=== PATIENT | female | born 1990 | race Caucasian/White ===

== ENCOUNTER 2020-02-08 17:34 | Emergency (ER) | payer OTHER ==
[~2020-02-08] VITALS: Ht 172.8 cm; Wt 64.5 kg
--- OUTSIDE RECORDS SUMMARY | 2020-02-08 17:41 | XMS REPORT | CCD ---
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 Name Role Phone PP Unavailable CCM Unavailable Summary Purpose Interface Exchange Insurance Providers Payer name Policy type / Coverage type Covered constitution party ID Effective Begin Date Effective End Date [employer] Comm ercial Insurance [id number] Unkn own Family history Mother Diagnosis Age At Onset Depression Unknown Social History Social History Element Codes Description Effective Dates Marital status Unknown M lee Em 06/10/[address]: [id number] Never smoker 03/03/2016 Alcohol history Unknown occasionally drinks alcohol 03/03/2016 Allergies, Adverse Reactions, Alerts Substance Reaction Codes Entered Date Inactivated Date Status * NO KNOWN DRUG CODY RGIES Unknown 03/03/2016 No Inactive Date Active Past Medical History Illness Codes Condition Status Onset Date Resolved Date Acute upper respirat ory infection, unspecified ICD-9: 465.9 ICD-10: J06.9 Active 06/10/2019 Unknown Other allergic rhinitis ICD-9: 477.8 ICD-10: J30.89 Active 06/10/2019 Unknown Encounter for gyneco logical examination (general) (routine) without abnormal findings ICD-9: V72.31 ICD-10: Z01.419 Active 07/11/2016 Unknown Encounter for genera l adult medical examination without abnormal findings ICD-9: V70.0 ICD-10: Z00.00 Active 03/02/2016 Unknown Problems Condition Codes Effectiv e Dates Condition Status Acute upper respirat ory infection, unspecified ICD-9: 465.9 ICD-10: J06.9 06/10/2019 Active Other allergic rhinitis ICD-9: 477.8 ICD-10: J30.89 06/10/2019 Active Encounter for gyneco logical examination (general) (routine) without abnormal findings ICD-9: V72.31 ICD-10: Z01.419 07/11/2016 Active Encounter for genera l adult medical examination without abnormal findings ICD-9: V70.0 ICD-10: Z00.00 03/02/2016 Active Medications Medication Codes Instruc tions Start Date Stop Date Fill Instructions Zyrtec-D 5 mg-120 mg tablet,extended release RxNorm: 9724243 1 Tablet(s) PO Q12 P RN 06/10/2019 No Stop Date Active NuvaRing 0.12 mg -0. 015 mg/24 hr vaginal RxNorm: 4227833 1 ring VAG monthly 10/18/2016 06/09/2019 In active wants 3 months RX NuvaRing 0.12 mg -0. 015 mg/24 hr vaginal RxNorm: [id number] 1 ring VAG monthly 07/12/2016 07/11/2016 In active NuvaRing 0.12 mg -0. 015 mg/24 hr vaginal RxNorm: [id number] 1 ring VAG monthly 07/12/2016 10/09/2016 In active wants 3 months RX NuvaRing 0.12 mg -0. 015 mg/24 hr vaginal RxNorm: [id number] 1 ring VAG monthly 03/03/2016 07/11/2016 In active NuvaRing 0.12 mg -0. 015 mg/24 hr vaginal RxNorm: [id number] 1 ring VAG monthly No Start Date 03/02/2016 Inactive Medication Administered No Medication Administered data Immunizations No Immunization data Assessments Condition Codes Effectiv e Dates Other allergic rhinitis ICD-10: J30. 89 ICD-9: 477.8 06/10/2019 Acute upper respiratory infection, unspecified ICD-10: J06.9 ICD-9: 465.9 06/10/2019 Encounter for gynecological examination (general) (routine) without abnormal findings ICD-10: Z01.419 ICD-9: V72.31 07/12/2016 Encounter for general adult medical exam ination without abnormal findings ICD-10: Z00.00 ICD-9: V70.0 03/03/2016 Reason For Visit Reason For Visit Effective Dates Notes sinus congestion 06/10/2019 well woman exam (18-39 years) 07/12/2016 well woman exam (18-39 years) 03/03/2016 Results Observation Observation Code Item Item Code Result Date GC/CHL PRB [id number] Chl t gabriele DNA Negative 07/13/2016 GC/CHL PRB [id number] GC [place] OBE Negative 07/13/2016 Review of Systems System Result Effective Dates Constitutional recent illness 06/10/2019 Constitutional No anorexia 06/10/2019 Constitutional No night sweats 06/10/2019 Constitutional No chills 06/10/2019 Constitutional No diaphoresis 06/10/2019 Constitutional No fatigue 06/10/2019 Constitutional No fever 06/10/2019 Constitutional No insomnia 06/10/2019 Constitutional No malaise 06/10/2019 Constitutional No weight loss 06/10/2019 Constitutional No weight gain 06/10/2019 Eyes No eye discharge Eyes No eye erythema Ears/Nose/Throat/Neck nasal allergies 06/10/2019 Ears/Nose/Throat/Neck nasal discharge 06/10/2019 Ears/Nose/Throat/Neck oral pain 06/10/2019 Ears/Nose/Throat/Neck sinus congestion 06/10/2019 Ears/Nose/Throat/Neck sore throat 06/10/2019 Cardiovascular No chest pain/pressure 06/10/2019 Respiratory cough 2018 Respiratory chest tightness 06/10/2019 Gastrointestinal No vomiting 06/10/2019 Gastrointestinal No nausea 06/10/2019 Dermatologic No rash Neurologic No alteration of consciousness 06/10/2019 Constitutional No recent illness 07/12/2016 Constitutional No anorexia 07/12/2016 Constitutional No night sweats 07/12/2016 Constitutional No chills 07/12/2016 Constitutional No diaphoresis 07/12/2016 Constitutional No fatigue 07/12/2016 Constitutional No fever 07/12/2016 Constitutional No insomnia 07/12/2016 Constitutional No malaise 07/12/2016 Constitutional No weight loss 07/12/2016 Constitutional No weight gain 07/12/2016 Constitutional No obesity 07/12/2016 Eyes No eye discharge Eyes No eye erythema Eyes No vision change Ears/Nose/Throat/Neck No headache 07/12/2016 Ears/Nose/Throat/Neck No nasal allergies 07/12/2016 Ears/Nose/Throat/Neck No nasal discharge 07/12/2016 Ears/Nose/Throat/Neck No otalgia 07/12/2016 Ears/Nose/Throat/Neck No otitis media 07/12/2016 Ears/Nose/Throat/Neck No postnasal drip 07/12/2016 Ears/Nose/Throat/Neck No sinus congestion 07/12/2016 Cardiovascular No chest pain/pressure 07/12/2016 Cardiovascular No dyspnea 07/12/2016 Cardiovascular No edema 07/12/2016 Cardiovascular No exercise intolerance 07/12/2016 Respiratory No chest congestion 07/12/2016 Respiratory No chest tightness 07/12/2016 Respiratory No cigarette smoking 07/12/2016 Respiratory No cough Respiratory No dyspnea on exertion 07/12/2016 Respiratory No dyspnea 1 Gastrointestinal No abdominal pain 07/12/2016 Gastrointestinal No constipation 07/12/2016 Gastrointestinal No diarrhea 07/12/2016 Genitourinary/Nephrology No dysuria 07/12/2016 Genitourinary/Nephrology No Pap smea r abnormality 07/12/2016 Genitourinary/Nephrology No urinary urgenc y 07/12/2016 Genitourinary/Nephrology No urinary frequency 07/12/2016 Genitourinary/Nephrology No urinary incontinence 07/12/2016 Genitourinary/Nephrology No urinary retention/hesitancy 07/12/2016 Musculoskeletal No joint complaint 07/12/2016 Musculoskeletal No muscle weakness 07/12/2016 Musculoskeletal No myalgias 07/12/2016 Dermatologic No rash Dermatologic No sores Psychiatric No anxiety 1 Psychiatric No depression 07/12/2016 Constitutional No recent illness 03/03/2016 Constitutional No anorexia 03/03/2016 Constitutional No night sweats 03/03/2016 Constitutional No chills 03/03/2016 Constitutional No diaphoresis 03/03/2016 Constitutional No fatigue 03/03/2016 Constitutional No fever 03/03/2016 Constitutional No insomnia 03/03/2016 Constitutional No malaise 03/03/2016 Constitutional No weight loss 03/03/2016 Constitutional No weight gain 03/03/2016 Constitutional No obesity 03/03/2016 Eyes No vision change Eyes No eye discharge Eyes No eye erythema 05/2016 Ears/Nose/Throat/Neck No nasal discharge 03/03/2016 Ears/Nose/Throat/Neck No nasal allergies 03/03/2016 Ears/Nose/Throat/Neck No headache 03/03/2016 Ears/Nose/Throat/Neck No sinus congestion 03/03/2016 Ears/Nose/Throat/Neck No postnasal drip 03/03/2016 Ears/Nose/Throat/Neck No otalgia 03/03/2016 Ears/Nose/Throat/Neck No otitis media 03/03/2016 Cardiovascular No chest pain/pressure 03/03/2016 Cardiovascular No dyspnea 03/03/2016 Cardiovascular No edema 03/03/2016 Cardiovascular No exercise intolerance 03/03/2016 Respiratory No cough 05/2016 Respiratory No chest congestion 03/03/2016 Respiratory No chest tightness 03/03/2016 Respiratory No cigarette smoking 03/03/2016 Respiratory No dyspnea 0 03/03/2016 Respiratory No dyspnea on exertion 03/03/2016 Gastrointestinal No abdominal pain 03/03/2016 Gastrointestinal No constipation 03/03/2016 Gastrointestinal No diarrhea 03/03/2016 Genitourinary/Nephrology No dysuria 03/03/2016 Genitourinary/Nephrology No urinary frequency 03/03/2016 Genitourinary/Nephrology No urinary urgenc y 03/03/2016 Genitourinary/Nephrology No Pap smea r abnormality 03/03/2016 Genitourinary/Nephrology No urinary incontinence 03/03/2016 Genitourinary/Nephrology No urinary retention/hesitancy 03/03/2016 Musculoskeletal No muscle weakness 03/03/2016 Musculoskeletal No myalgias 03/03/2016 Musculoskeletal No joint complaint 03/03/2016 Dermatologic No sores Dermatologic No rash 05/2016 Psychiatric No depression 03/03/2016 Psychiatric No anxiety 0 03/03/2016 Physical Exam Exam Name System Name It em Name Status Result Effective Dates Notes Full Exam - ENT Constitutional general appearance Overall: well nourished 06/10/2019 None Full Exam - ENT Constitutional general appearance Overall: well developed 06/10/2019 None Full Exam - ENT Constitutional general appearance Overall: in no acute distress 06/10/2019 None Full Exam - ENT Neurologic orientation Overall: oriented to person, place a nd time 06/10/2019 None Full Exam - ENT Integument inspection of skin Overall: no rash, lesions 06/10/2019 None Full Exam - ENT Lymphatic palpation of lymph nodes Overall: shotty lymphadenopathy 06/10/2019 None Full Exam - ENT Cardiovascular auscultation of heart Overall: regular rate 06/10/2019 None Full Exam - ENT Cardiovascular auscultation of heart Overall: normal heart sounds 06/10/2019 None Full Exam - ENT Cardiovascular auscultation of heart Overall: no murmurs 06/10/2019 None Full Exam - ENT Respiratory inspection Overall: normal rate None Full Exam - ENT Respiratory inspection Overall: no retractions 06/10/2019 None Full Exam - ENT Respiratory auscultation Overall: breath sounds clear bilater ally 06/10/2019 None Full Exam - ENT Ears/Nose/Throat otoscopic exam Overall: external auditory canals normal 06/10/2019 None Full Exam - ENT Ears/Nose/Throat otoscopic exam Overall: tympanic membranes normal 06/10/2019 None Full Exam - ENT Ears/Nose/Throat oropharynx Overall: oral mucosa clear 06/10/2019 None Full Exam - ENT Face and Head palpation Overall: no sinus tenderness 06/10/2019 None Full Exam - General 1994 Constitutional general appearance Overall: well developed 07/12/2016 None Full Exam - General 1994 Constitutional general appearance Overall: in no acute distress 07/12/2016 None Full Exam - General 1994 Constitutional general appearance Overall: well nourished 07/12/2016 None Full Exam - General 1994 Constitutional general appearance Hygiene/Attention to Grooming: good hygiene 07/12/2016 None Full Exam - General 1994 Eyes conjunctiva/eyelids Overall: conjunctiva clear 07/12/2016 None Full Exam - General 1994 Eyes conjunctiva/eyelids Overall: cornea clear 07/12/2016 None Full Exam - General 1994 Eyes conjunctiva/eyelids Overall: eyelids normal 07/12/2016 None Full Exam - General 1994 Eyes pupils and irises Overall: pupils equal, round, reactive to light and accomodation 07/12/2016 None Full Exam - General 1994 Ears/Nose/Throat external ear Overall: normal appearance 07/12/2016 None Full Exam - General 1994 Ears/Nose/Throat external ear Overall: no masses 07/12/2016 None Full Exam - General 1994 Ears/Nose/Throat external ear Overall: normal mastoids 07/12/2016 None Full Exam - General 1994 Ears/Nose/Throat otoscopic exam Overall: external auditory canals clear 07/12/2016 None Full Exam - General 1994 Ears/Nose/Throat otoscopic exam Overall: tympanic membranes clear 07/12/2016 None Full Exam - General 1994 Ears/Nose/Throat lips/teeth/gingiva Overall: benign lips 07/12/2016 None Full Exam - General 1994 Ears/Nose/Throat lips/teeth/gingiva Overall: normal dentition 07/12/2016 None Full Exam - General 1994 Ears/Nose/Throat lips/teeth/gingiva Overall: benign gingiva 07/12/2016 None Full Exam - General 1994 Ears/Nose/Throat lips/teeth/gingiva Overall: no masses 07/12/2016 None Full Exam - General 1994 Ears/Nose/Throat oral cavity/pharynx/larynx Overall: oral mucosa clear 07/12/2016 None Full Exam - General 1994 Ears/Nose/Throat oral cavity/pharynx/larynx Overall: oropharyngeal mucosa clear 07/12/2016 None Full Exam - General 1994 Ears/Nose/Throat oral cavity/pharynx/larynx Overall: no masses 07/12/2016 None Full Exam - General 1994 Neck thyroid Overall: normal size None Full Exam - General 1994 Neck thyroid Overall: normal consistency 07/12/2016 None Full Exam - General 1994 Neck thyroid Overall: nontender 07/12 None Full Exam - General 1994 Neck thyroid Overall: no mass lesions 07/12/2016 None Full Exam - General 1994 Respiratory auscultation Overall: breath sounds clear bilaterally 07/12/2016 None Full Exam - General 1994 Respiratory respiratory effort/rhythm Overall: no retractions 07/12/2016 None Full Exam - General 1994 Respiratory respiratory effort/rhythm Overall: normal rate 07/12/2016 None Full Exam - General 1994 Cardiovascular extremities Overall: no clubbing 07/12/2016 None Full Exam - General 1994 Cardiovascular auscultation of heart Overall: regular rate 07/12/2016 None Full Exam - General 1994 Cardiovascular auscultation of heart Overall: normal heart sounds 07/12/2016 None Full Exam - General 1994 Cardiovascular auscultation of heart Overall: no murmurs 07/12/2016 None Full Exam - General 1994 Abdomen abdominal exam Overall: no tenderness 07/12/2016 None Full Exam - General 1994 Abdomen abdominal exam Overall: normal bowel sounds 07/12/2016 None Full Exam - General 1994 Musculoskeletal gait and station Overall: normal gait 07/12/2016 None Full Exam - General 1994 Musculoskeletal gait and station Overall: normal station 07/12/2016 None Full Exam - General 1994 Integument inspection of skin Overall: no rash, lesions 07/12/2016 None Full Exam - General 1994 Psychiatric orientation/consciousness Overall: oriented to person, place and time 07/12/2016 None Full Exam - General 1994 Psychiatric mood and affect Overall: normal mood and affect 07/12/2016 None Full Exam - General 1994 Psychiatric mood and affect Mood: happy 07/12/2016 None Full Exam - General 1994 Psychiatric appearance Overall: well-groomed, good eye contact 07/12/2016 None Full Exam - General 1994 Chest/Breast breast and axillae palpation Overall: breasts non- tender 07/12/2016 None Full Exam - General 1994 Chest/Breast breast and axillae palpation Overall: axillae non- tender 07/12/2016 None Full Exam - General 1994 Chest/Breast breast and axillae palpation Overall: no nipple discharge 07/12/2016 None Full Exam - General 1994 Chest/Breast breast/chest inspection Overall: breasts to symmetric and without lesions 07/12/2016 None Full Exam - General 1994 Chest/Breast breast/chest inspection Overall: normal chest shape 07/12/2016 None Full Exam - General 1994 Lymphatic neck nodes Overall: anterior cervical chain benign 07/12/2016 None Full Exam - General 1994 Lymphatic neck nodes Overall: posterior cervical chain benign 07/12/2016 None Full Exam - General 1994 Genitourinary uterus Overall: normal size 07/12/2016 None Full Exam - General 1994 Genitourinary labia and vagina Overall: normal hair distribution 07/12/2016 None Full Exam - General 1994 Genitourinary labia and vagina Overall: no lesions 07/12/2016 None Full Exam - General 1994 Genitourinary adnexa/parametria Overall: no tenderness 07/12/2016 None Full Exam - General 1994 Genitourinary urethra Overall: no masses 07/12/2016 None Full Exam - General 1994 Genitourinary bladder Overall: no tenderness 07/12/2016 None Full Exam - General 1994 Genitourinary cervix Overall: no discharge 07/12/2016 nuva ring noted Full Exam - General 1994 Eyes conjunctiva/eyelids Overall: conjunctiva clear 03/03/2016 None Full Exam - General 1994 Eyes conjunctiva/eyelids Overall: eyelids normal 03/03/2016 None Full Exam - General 1994 Eyes conjunctiva/eyelids Overall: cornea clear 03/03/2016 None Full Exam - General 1994 Eyes pupils and irises Overall: pupils equal, round, reactive to light and accomodation 03/03/2016 None Full Exam - General 1994 Constitutional general appearance Overall: well nourished 03/03/2016 None Full Exam - General 1994 Constitutional general appearance Overall: well developed 03/03/2016 None Full Exam - General 1994 Constitutional general appearance Overall: in no acute distress 03/03/2016 None Full Exam - General 1994 Constitutional general appearance Hygiene/Attention to Grooming: good hygiene 03/03/2016 None Full Exam - General 1994 Ears/Nose/Throat lips/teeth/gingiva Overall: benign gingiva 03/03/2016 None Full Exam - General 1994 Ears/Nose/Throat lips/teeth/gingiva Overall: no masses 03/03/2016 None Full Exam - General 1994 Ears/Nose/Throat lips/teeth/gingiva Overall: normal dentition 03/03/2016 None Full Exam - General 1994 Ears/Nose/Throat lips/teeth/gingiva Overall: benign lips 03/03/2016 None Full Exam - General 1994 Ears/Nose/Throat oral cavity/pharynx/larynx Overall: oropharyngeal mucosa clear 03/03/2016 None Full Exam - General 1994 Ears/Nose/Throat oral cavity/pharynx/larynx Overall: no masses 03/03/2016 None Full Exam - General 1994 Ears/Nose/Throat oral cavity/pharynx/larynx Overall: oral mucosa clear 03/03/2016 None Full Exam - General 1994 Ears/Nose/Throat otoscopic exam Overall: tympanic membranes clear 03/03/2016 None Full Exam - General 1994 Ears/Nose/Throat otoscopic exam Overall: external auditory canals clear 03/03/2016 None Full Exam - General 1994 Ears/Nose/Throat external ear Overall: no masses 03/03/2016 None Full Exam - General 1994 Ears/Nose/Throat external ear Overall: normal appearance 03/03/2016 None Full Exam - General 1994 Ears/Nose/Throat external ear Overall: normal mastoids 03/03/2016 None Full Exam - General 1994 Respiratory respiratory effort/rhythm Overall: normal rate 03/03/2016 None Full Exam - General 1994 Respiratory respiratory effort/rhythm Overall: no retractions 03/03/2016 None Full Exam - General 1994 Respiratory auscultation Overall: breath sounds clear bilaterally 03/03/2016 None Full Exam - General 1994 Neck thyroid Overall: nontender 03/03 None Full Exam - General 1994 Neck thyroid Overall: normal size 05/2016 None Full Exam - General 1994 Neck thyroid Overall: no mass lesions 03/03/2016 None Full Exam - General 1994 Neck thyroid Overall: normal consistency 03/03/2016 None Full Exam - General 1994 Cardiovascular extremities Overall: no clubbing 03/03/2016 None Full Exam - General 1994 Cardiovascular auscultation of heart Overall: regular rate 03/03/2016 None Full Exam - General 1994 Cardiovascular auscultation of heart Overall: normal heart sounds 03/03/2016 None Full Exam - General 1994 Cardiovascular auscultation of heart Overall: no murmurs 03/03/2016 None Full Exam - General 1994 Abdomen abdominal exam Overall: no tenderness 03/03/2016 None Full Exam - General 1994 Abdomen abdominal exam Overall: normal bowel sounds 03/03/2016 None Full Exam - General 1994 Musculoskeletal gait and station Overall: normal station 03/03/2016 None Full Exam - General 1994 Musculoskeletal gait and station Overall: normal gait 03/03/2016 None Full Exam - General 1994 Integument inspection of skin Overall: no rash, lesions 03/03/2016 None Full Exam - General 1994 Psychiatric orientation/consciousness Overall: oriented to person, place and time 03/03/2016 None Full Exam - General 1994 Psychiatric mood and affect Overall: normal mood and affect 03/03/2016 None Full Exam - General 1994 Psychiatric appearance Overall: well-groomed, good eye contact 03/03/2016 None Full Exam - General 1994 Psychiatric mood and affect Mood: happy 03/03/2016 None Procedures No Procedures data Vital Signs Date Vital 06/10/2019 Blood Pressure 1: 122/74 Code: 8480-6 BMI: 21.9 Code: 84696-4 Heart Rate 1: 84 bpm Height: 5'7" SpO2: 98% Weight: 140 lbs 07/12/2016 Blood Pressure 1: 118/72 Code: 8480-6 BMI: 21.6 Code: 35675-1 Heart Rate 1: 68 bpm Height: 5'7" SpO2: 98% Weight: 138 lbs 03/03/2016 Blood Pressure 1: 110/70 Code: 8480-6 BMI: 21.3 Code: 77641-5 Heart Rate 1: 71 bpm Height: 5'7" SpO2: 96% Weight: 136 lbs Functional Status No Functional Status data History of Present Illness Symptom Name Status Resu lt Effective Date Notes Onset and Resolution s udden in onset 06/10/2019 None Onset of Symptom 4 day s ago 06/10/2019 None Frequency of Episodes daily 06/10/2019 None Pertinent Findings Den ies cough 06/10/2019 None Pertinent Findings dec reased energy level 06/10/2019 None Pertinent Findings fac ial pain 06/10/2019 None Pertinent Findings Den ies fever 06/10/2019 None Severity mild 06/10/2019 None well woman exam (18-39 years) Contro l regular use 07/12/2016 nuva ring monthly well woman exam (18-39 years) Obstet rical History 0 total pregnancies 07/12/2016 None well woman exam (18-39 years) Sexual Activity experiences sexual satisfaction 07/12/2016 None well woman exam (18-39 years) Lifestyle no history of physical abuse 07/12/2016 None well woman exam (18-39 years) Lifestyle regular seatbelt use 07/12/2016 None well woman exam (18-39 years) Lifestyle normal sleep patterns 07/12/2016 None well woman exam (18-39 years) Lifestyle normal amount of stress 07/12/2016 None well woman exam (18-39 years) Nutrit ion and Exercise normal weight 07/12/2016 None well woman exam (18-39 years) Health Guidance self-breast exam 07/12/2016 None well woman exam (18-39 years) Menstr ual History regular menses 07/12/2016 None well woman exam (18-39 years) Menstr ual History heavy flow 07/12/2016 No ne well woman exam (18-39 years) Menstr ual History last menstrual period ----2015 None well woman exam (18-39 years) Contro l regular use 03/03/2016 nuva ring monthly well woman exam (18-39 years) Pap Smear last normal performed on 201403/03/2016 None well woman exam (18-39 years) Menstr ual History last menstrual period 02-28-05/2016 None well woman exam (18-39 years) Obstet rical History 0 total pregnancies 03/03/2016 None well woman exam (18-39 years) Sexual Activity experiences sexual satisfaction 03/03/2016 None well woman exam (18-39 years) Lifestyle no history of physical abuse 03/03/2016 None well woman exam (18-39 years) Lifestyle regular seatbelt use 03/03/2016 None well woman exam (18-39 years) Lifestyle normal sleep patterns 03/03/2016 None well woman exam (18-39 years) Lifestyle normal amount of stress 03/03/2016 None well woman exam (18-39 years) Nutrit ion and Exercise normal weight 03/03/2016 None well woman exam (18-39 years) Health Guidance self-breast exam 03/03/2016 None Advance Directives No Advance Directive data Encounters Encounter Performer Loca tion Codes Date () 17472 EST. P ATIENT, LEVEL III Diagnosis: Other allergic rhinitis[ICD10: J30.89] Diagnosis: Acute upper respiratory infection, unspecified[ICD10: J06.9] [facility] CPT-4: 36574 06/10/2019 ([id number]) PREV VISIT E ST AGE 18-39 Diagnosis: Encounter for gynecological examination (general) (routine) without abnormal findings[ICD10: Z01.419] [facility] CPT-4: 83592 07/12/2016 ([id number]) OFFICE/OUTPA TIENT VISIT NEW Diagnosis: Encounter for general adult medical examination without abnormal findings[ICD10: Z00.00] [facility] CPT-4: 60781 03/03/2016 Plan of Care Planned Activity Notes C odes Status Date Visit Plan: Allergies - chronic - r ecommended pt to use allergy medication as prescribed. Pt has been counseled as to the appropriate use of the medication. Pt to call if allergy symptoms are not controlled with th e medication. If using nasal spray, instructions as follows: Nasal spray- use twice daily, one spray per nostril twice daily, after 30 minutes, rinse out nose with saline spray.. Use opposite hand per nostril to spray in the nasal steroid allergy spray. URI -likely viral- Pt advised to increase fluids, vitamin C. Discussed natural and expected course of this diagnosis and need to alert me if symptoms do not follow expected course, or if any worse. 06/10/2019 Appointment: Jeanine Piper WPtel: [address] [place], [place] [phone] (30 min) [facility] 06/10/2019 Patient Education: Patient Medication Summary Completed 06/10/2019 Visit Plan: Well Adult Female - exa m completed. Pap and gc/chlamydia and breast exam completed. Pt will be called with results of her testing. She was advised to continue with yearly annual exams. Safe sex practice s discussed during office visit today. Call if any abnormal gynecologic issues during the next year, otherwise, RTC yearly or prn. 07/12/2016 Appointment: Feliz Jeanine W[facility]el[phone] [facility] 07/12/2016 Patient Education: Patient Medication Summary Completed 07/12/2016 Care Plan: PAP Pending 07/12/2016 Visit Plan: Well Adult - pt was cou nseled about diet, exercise, and encouraged to follow a heart healthy diet and increase activity level. The patient was instructed to RTC yearly for well adult exams and PRN for acute illnesses. The pt was also instructed to have yearly labs for check of cholesterol, thyroid, chem panel, CBC, and renal functioning. 03/03/2016 Patient Education: Patient Medication Summary Completed 03/03/2016 Care Plan: Tsh Pending 03/03/2016 Care Plan: Lipid Pending 03/03/2016 Care Plan: Comp Metabolic patient to come fasting Pending 03/03/2016 Care Plan: Cbc With Differential Pending 03/03/2016 Instructions Comment . Well Adult Female - exam completed. Pap and gc/chlamydia and breast exam completed. Pt will be called with results of her testing. She was advised to continue with yearly annual exams. Safe sex practices discussed during office visit today. Call if any abnormal gynecologic issues during the next year, otherwise, RTC yearly or prn. . Allergies - chroni c - recommended pt to use allergy medication as prescribed. Pt has been counseled as to the appropriate use of the medication. Pt to call if allergy symptoms are not controlled with the medication. If using nasal spray, instructions as follows: Nasal spray- use twice daily, one spray per nostril twice daily, after 30 minutes, rinse out nose with saline spray.. Use opposite hand per nostril to spray in the nasal steroid allergy spray. URI -likely viral- Pt advised to increase fluids, vitamin C. Discussed natural and expected course of this diagnosis and need to alert me if symptoms do not follow expected course, or if any worse. RETURN FOR WELL WOMA N EXAM. Well Adult - pt was counseled about diet, exercise, and encouraged to follow a heart healthy diet and increase activity level. The patient was instructed to RTC yearly for well adult exams and PRN for acute illnesses. The pt was also instructed to have yearly labs for check of cholesterol, thyroid, chem panel, CBC, and renal functioning.
--- OUTSIDE RECORDS SUMMARY | 2020-02-08 17:41 | XMS REPORT | CCD ---
Author Author [place] Organization Teresa Che MD, [facility] Address [address] [place] [address] Phone Care Team Providers Care Podiatry Teacher Name Role Phone PP Unavailable CCM Unavailable Summary Purpose Interface Exchange Insurance Providers Payer name Policy type / Coverage type Covered constitution party ID Effective Begin Date Effective End Date Blue Cross Blue Shield [facility] e Cross/Blue Shield [id number] Unknown Unk nown Family history Mother Diagnosis Age At Onset Depression Unknown Social History Social History Element Codes Description Effective Dates Marital status Unknown M lee Em 06/10/[address]: 770839210 Never smoker 03/03/2016 Alcohol history Unknown occasionally [...] Zyrtec-D 5 mg-120 mg tablet,extended release RxNorm: 2813402 1 Tablet(s) PO Q12 P RN 06/10/2019 No Stop Date Active NuvaRing 0.12 mg -0. 015 mg/24 hr vaginal RxNorm: 4196262 1 ring VAG monthly 10/18/2016 06/09/2019 In active wants 3 months RX NuvaRing 0.12 mg -0. 015 mg/24 hr vaginal RxNorm: 0120098 1 ring VAG monthly 07/12/2016 07/11/2016 In active NuvaRing 0.12 mg -0. 015 mg/24 hr vaginal RxNorm: 1397357 1 ring VAG monthly 07/12/2016 10/09/2016 In active wants 3 months RX NuvaRing 0.12 mg -0. 015 mg/24 hr vaginal RxNorm: 5499545 1 ring VAG monthly 03/03/2016 07/11/2016 In active NuvaRing 0.12 mg -0. 015 mg/24 hr vaginal RxNorm: 0388121 1 ring VAG monthly No Start Date [...] Item Item Code Result Date GC/CHL PRB 9466909 Chl t gabriele DNA Negative 07/13/2016 GC/CHL PRB [id number] GC SD OBE Negative 07/13/2016 Review of Systems System [...] 1: 122/74 Code: 8480-6 BMI: 21.9 Code: 33497-2 Heart Rate 1: 84 bpm Height: 5'7" SpO2: 98% Weight: 140 lbs 07/12/2016 Blood Pressure 1: 118/72 Code: 8480-6 BMI: 21.6 Code: 14329-2 Heart Rate 1: 68 bpm Height: 5'7" SpO2: 98% Weight: 138 lbs 03/03/2016 Blood Pressure 1: 110/70 Code: 8480-6 BMI: 21.3 Code: 32110-5 Heart Rate 1: 71 bpm Height: 5'7" [...] Encounter Performer Loca tion Codes Date () 54766 EST. P ATIENT, LEVEL III Diagnosis: Other allergic rhinitis[ICD10: J30.89] Diagnosis: Acute upper respiratory infection, unspecified[ICD10: J06.9] [facility] CPT-4: 86074 06/10/2019 ([id number]) PREV VISIT E ST AGE 18-39 Diagnosis: Encounter for gynecological examination (general) (routine) without abnormal findings[ICD10: Z01.419] [facility] CPT-4: 08494 07/12/2016 ([id number]) OFFICE/OUTPA TIENT VISIT NEW Diagnosis: Encounter for general adult medical examination without abnormal findings[ICD10: Z00.00] [facility] CPT-4: 78964 03/03/2016 Plan of Care Planned Activity Notes [...] expected course, or if any worse. 06/10/2019 Patient Education: Patient Medication Summary Completed [...] otherwise, RTC yearly or prn. 07/12/2016 Appointment: Jeanine Piper WPtel: [phone] [phone] [facility] Woman 07/12/2016 Patient Education: Patient Medication [...]
[2020-02-08] MEDS ORDERED: LACTATED RINGERS 1,000 ML IV ONE (18:15)
[2020-02-08 18:25] LABS: BASOPHILS % (AUTO) 0 % (0-10); EOSINOPHILS % (AUTO) 0 % (0-10); HEMATOCRIT 42 % (35-52); HEMOGLOBIN 14.6 G/DL (11.5-16.0); LYMPHOCYTES # (AUTO) 2.2 X 10^3 (1.0-4.0); LYMPHOCYTES % (AUTO) 19 % (12-44); MEAN CORPUSCULAR HEMOGLOBIN 31 PG (25-34); MEAN CORPUSCULAR HGB CONC 35 G/DL (32-36); MEAN CORPUSCULAR VOLUME 89 FL (80-99); MONOCYTES # (AUTO) 0.4 X 10^3 (0.0-1.0); MONOCYTES % (AUTO) 3 % (0-12); NEUTROPHILS # (AUTO) 8.7 X 10^3 (1.8-7.8); NEUTROPHILS % (AUTO) 77 % (42-75); PLATELET COUNT 245 10^3/uL (130-400); RED CELL DISTRIBUTION WIDTH 12.7 % (10.0-14.5); WHITE BLOOD COUNT 11.3 10^3/uL (4.3-11.0)
[2020-02-08 18:30] LABS: ALBUMIN 5.1 GM/DL (3.2-4.5); CHLORIDE 103 MMOL/L (98-107); POTASSIUM 3.8 MMOL/L (3.6-5.0); SODIUM 139 MMOL/L (135-145)
[2020-02-08 18:31] LABS: CALCIUM 10.4 MG/DL (8.5-10.1)
[2020-02-08 18:32] LABS: GLUCOSE 87 MG/DL (70-105); TOTAL PROTEIN 8.5 GM/DL (6.4-8.2)
[2020-02-08 18:33] LABS: CARBON DIOXIDE 23 MMOL/L (21-32)
[2020-02-08 18:34] LABS: BILIRUBIN,TOTAL 0.3 MG/DL (0.1-1.0)
--- NOTE | 2020-02-08 18:34 | ED Neurological Problem ---
General Chief Complaint: Head/Cervical Problems Stated Complaint: HEADACHE Nursing Triage Note: Pt amb to room #6 with c/o dull headache. Pt reports on this day after working out et detox foot soak, she experienced x1 episode of dizziness, blurred vision, et expressive aphagia. Pt reports episode lasted <10 minutes. Pt reports after episode, she developed dull frontal lobe headache. Pt states, "my tongue feels thick." Pt denies fever, chills, SOA, or CP. A&OX4. Nursing Sepsis Screen: No Definite Risk Source: patient Exam Limitations: no limitations History of Present Illness Date Seen by Provider: February 08, 2020 Time Seen by Provider: 18:05 Initial Comments This 29-year-old young lady ("Eloise") presents to the emergency room with complaints of symptoms that started around 13:15 after a 30 minute cardiovascular workout and a detoxifying foot bath. Symptoms started with difficulty speaking and formulating sentences for about 10 minutes with accompanying monocular blurry vision which sounds similar to migraine aura by description. She then developed a brief numbness in her right fifth finger and an odd feeling of her tongue. These symptoms all occurred between 13:15 and 14:15. She then developed a mild headache around 15:00. She has no neurologic deficits at this time but the mild headache persists. She has history of headaches in college the sound to be non-migrainous which she attributed to chiropractic issues. She denies any significant health problems. She denies any drug, alcohol, or supplement use aside from some occasional amino acid supplementation. She denies as she has an IUD. She reports her workout today was not unusually strenuous and she has never had these symptoms after exertion in the past. Allergies and Home Medications Allergies Coded Allergies: No Known Drug Allergies (Unverified , 02/08/20) Patient Home Medication List Home Medication List Reviewed: Yes Review of Systems Review of Systems Constitutional: no symptoms reported Eyes: See HPI Ears, Nose, Mouth, Throat: no symptoms reported Respiratory: no symptoms reported Cardiovascular: no symptoms reported Gastrointestinal: no symptoms reported Genitourinary: no symptoms reported : No Musculoskeletal: no symptoms reported Skin: no symptoms reported Psychiatric/Neurological: See HPI Endocrine: No Symptoms Reported Hematologic/Lymphatic: No Symptoms Reported Past Mkbqren-Vfcuez-Pgysqd Hx Past Med/Social Hx: Reviewed Nursing Past Med/Soc Hx Patient Social History Alcohol Use: Rarely Uses Number of Drinks Today: 0 Recreational Drug Use: No Smoking Status: Never a Smoker 2nd Hand Smoke Exposure: No Recent Foreign Travel: No Contact w/Someone Who Travel: No Recent Infectious Disease Expo: No Recent Hopitalizations: No Seasonal Allergies Seasonal Allergies: No Past Medical History Surgeries: No Respiratory: No Cardiac: No Neurological: Yes Headaches /Migraines Genitourinary: No Gastrointestinal: No Musculoskeletal: No Endocrine: No HEENT: No Cancer: No Psychosocial: No Integumentary: No Family Medical History Stroke (intracranial hemorrhage) Physical Exam Vital Signs Vital Signs - First Documented 02/08/20 17:41 Temp 36.5 Pulse 66 Resp 18 B/P (MAP) 144/93 (110) Pulse Ox 98 O2 Delivery Room Air Capillary Refill : Less Than 3 Seconds Height, Weight, BMI Height: '" Weight: lbs. oz. kg; 21.00 BMI Method: General Appearance: WD/WN, no apparent distress HEENT: PERRL/EOMI, normal ENT inspection, TMs normal, pharynx normal Neck: normal inspection Respiratory: lungs clear, normal breath sounds, no respiratory distress, no accessory muscle use Cardiovascular: regular rate, rhythm, no edema, no murmur Gastrointestinal: normal bowel sounds, non tender, soft Extremities: normal inspection, no pedal edema Neurologic/Psychiatric: clinical pharmacy coordinator II-XII nml as tested, no motor/sensory deficits, alert, normal mood/affect, oriented x 3 Crainal Nerves: normal hearing, normal speech, PERRL Coordination/Gait: normal finger to nose (normal heel to mahmood), normal gait Motor/Sensory: no motor deficit, no sensory deficit Skin: normal color, warm/dry Progress/Results/Core Measures Results/Orders Lab Results Laboratory Tests Test 02/08/20 17:58 02/08/20 19:08 Range/Units White Blood Count 11.3 H 4.3-11.0 10^3/uL Red Blood Count 4.73 4.35-5.85 10^6/uL Hemoglobin 14.6 11.5-16.0 G/DL Hematocrit 42 35-52 % Mean Corpuscular Volume 89 80-99 FL Mean Corpuscular Hemoglobin 31 25-34 PG Mean Corpuscular Hemoglobin Concent 35 32-36 G/DL Red Cell Distribution Width 12.7 10.0-14.5 % Platelet Count 245 130-400 10^3/uL Mean Platelet Volume 11.0 H 7.4-10.4 FL Neutrophils (%) (Auto) 77 H 42-75 % Lymphocytes (%) (Auto) 19 12-44 % Monocytes (%) (Auto) 3 0-12 % Eosinophils (%) (Auto) 0 0-10 % Basophils (%) (Auto) 0 0-10 % Neutrophils # (Auto) 8.7 H 1.8-7.8 X 10^3 Lymphocytes # (Auto) 2.2 1.0-4.0 X 10^3 Monocytes # (Auto) 0.4 0.0-1.0 X 10^3 Eosinophils # (Auto) 0.0 0.0-0.3 10^3/uL Basophils # (Auto) 0.0 0.0-0.1 10^3/uL Sodium Level 139 135-145 MMOL/L Potassium Level 3.8 3.6-5.0 MMOL/L Chloride Level 103 98-107 MMOL/L Carbon Dioxide Level 23 21-32 MMOL/L Anion Gap 13 5-14 MMOL/L Blood Urea Nitrogen 15 7-18 MG/DL Creatinine 0.95 0.60-1.30 MG/DL Estimat Glomerular Filtration Rate > 60 BUN/Creatinine Ratio 16 Glucose Level 87 70-105 MG/DL Calcium Level 10.4 H 8.5-10.1 MG/DL Corrected Calcium 8.5-10.1 MG/DL Magnesium Level 2.0 1.6-2.4 MG/DL Total Bilirubin 0.3 0.1-1.0 MG/DL Aspartate Amino Transf (AST/SGOT) 24 5-34 U/L Alanine Aminotransferase (ALT/SGPT) 24 0-55 U/L Alkaline Phosphatase 60 40-136 U/L Total Protein 8.5 H 6.4-8.2 GM/DL Albumin 5.1 H 3.2-4.5 GM/DL Serum Test, Qualitative NEGATIVE NEGATIVE Urine Color YELLOW Urine Clarity CLEAR Urine pH 6.0 5-9 Urine Specific [place] 1.010 L 1.016-1.022 Urine Protein NEGATIVE NEGATIVE Urine Glucose (UA) NEGATIVE NEGATIVE Urine Ketones NEGATIVE NEGATIVE Urine Nitrite NEGATIVE NEGATIVE Urine Bilirubin NEGATIVE NEGATIVE Urine Urobilinogen 0.2 < = 1.0 MG/DL Urine Leukocyte Esterase TRACE H NEGATIVE Urine RBC (Auto) NEGATIVE NEGATIVE Urine RBC 0-2 /HPF Urine WBC 2-5 /HPF Urine Squamous Epithelial Cells 25-50 H /HPF Urine Crystals NONE /LPF Urine Bacteria FEW H /HPF Urine Casts NONE /LPF Urine Mucus NEGATIVE /LPF Urine Culture Indicated NO My Orders Orders - DIMPLE GLASS MD Cbc With Automated Diff (02/08/20 18:15) Comprehensive Metabolic Panel (02/08/20 18:15) Hcg,Qualitative Serum (02/08/20 18:15) Magnesium (02/08/20 18:15) Ua Culture If Indicated (02/08/20 18:15) Ed Iv/Invasive Line Start (02/08/20 18:15) Lactated Ringers (Lr 1000 Ml Iv Solution (02/08/20 18:15) Ekg Tracing (02/08/20 18:15) Monitor-Rhythm Ecg Trace Only (02/08/20 18:15) Ct Angio Head/Neck (02/08/20 19:01) Iohexol Injection (Omnipaque 350 Mg/Ml 1 (02/08/20 19:15) Received Contrast (Hold Metformin- Contr (02/08/20 19:15) Ns (Ivpb) (Sodium Chloride 0.9% Ivpb Bag (02/08/20 19:15) Medications Given in ED Current Medications Medications Dose Ordered Sig/Dalila Route Start Time Stop Time Status Last Admin Dose Admin Iohexol 75 ml ONCE ONCE IV 02/08/20 19:15 02/08/20 19:16 DC 02/08/20 19:32 75 ML Lactated Ringer's 1,000 ml @ 0 mls/hr Q0M ONCE IV 02/08/20 18:15 02/08/20 18:17 DC 02/08/20 18:21 0 MLS/HR Sodium Chloride 100 ml ONCE ONCE IV 02/08/20 19:15 02/08/20 19:16 DC 02/08/20 19:32 80 ML Vital Signs/I&O 02/08/20 17:41 Temp 36.5 Pulse 66 Resp 18 B/P (MAP) 144/93 (110) Pulse Ox 98 O2 Delivery Room Air Blood Pressure Mean: 110 Progress Progress Note #1: Time: 19:15 Progress Note Patient presently has no neurologic deficits. Her only residual symptom is mild headache. Initial workup was unremarkable. Urinalysis is pending. I discussed the case with Dr. Valle, stroke neurologist at [facility]. She agrees symptoms statistically are likely related to atypical migraine, especially with the marching onset of progressive symptoms. However, since this is her first event of this kind, the patient deserves imaging with CT angiogram to rule out other vascular or intracranial pathologies. Risks and benefits of CT were discussed with the patient and she is agreeable. A liter of LR is infusing. Progress Note #2: Time: 20:36 Progress Note Patient is feeling well except for slight headache at this time. She has no focal neurologic deficits at this time. CT angiogram of the head and neck was nonpathologic. Findings discussed with the patient. Initial ECG Impression Date: February 08, 2020 Initial ECG Impression Time: 18:25 Initial ECG Rate: 59 Initial ECG Rhythm: Normal Sinus Initial ECG Intervals: Normal Initial ECG Impression: Normal Comment Normal sinus rhythm with no ST elevation or depression. No abnormal intervals. LVH by voltage by automated read. Diagnostic Imaging Diagonstic Imaging: CT Plain Films/CT/US/NM/MRI: other (angiogram head and neck) Comments CT angiogram head and neck viewed by me and report reviewed. See report below: NAME: JOSE GARIBAY [facility] REC#: [id number] PT STATUS: REG ER : 1990 PHYSICIAN: DIMPLE GLASS MD ADMIT DATE: 02/08/20/ER Signed Date of Exam:02/08/20 CT ANGIO HEAD/NECK PROCEDURE: CT angiography of the head and CT angiography of the neck with and without contrast. TECHNIQUE: Contiguous noncontrast images were obtained from the skull base through the vertex. After intravenous contrast administration, helical CT angiography of the neck was performed. Source data was reformatted into 3D MIP projections. Delayed post contrast acquisition was also obtained. Auto Exposure Controls were utilized during the CT exam to meet ALARA standards for radiation dose reduction. INDICATION: Dull headache with resolved episode of dizziness and blurred vision. No comparison available. FINDINGS: CT of the head demonstrates no evidence of an acute intracranial abnormality. There is no evidence of intracranial hemorrhage. There is no mass effect or shift. There is no hydrocephalus. There is no abnormal extra-axial fluid collection. Bunch-white matter differentiations are maintained. Basilar cisterns patent. Posterior fossa unremarkable. Mastoid air cells appear clear. The paranasal sinuses are clear. The orbital contents are unremarkable. CTA demonstrates no significant stenosis at the origins of the great vessels arising from aortic arch. There is a common origin of the left common carotid artery and brachiocephalic. The vertebral artery origins are patent. Common carotid arteries demonstrate no significant stenosis. There is no significant stenosis at the bifurcations. Cervical ICA is unremarkable. The vertebral arteries within the neck unremarkable. There are no findings of dissection. Intracranially, there is appropriate flow within the intracranial segments of the internal carotid arteries. Carotid terminus unremarkable. There is normal flow within the M1 segment of both of the middle cerebral arteries with no occluded M2 branch. The anterior cerebral arteries are patent. Within the posterior circulation, the vertebral arteries are patent. Basilar unremarkable. Superior cerebellar and posterior cerebral arteries unremarkable. There are no findings of aneurysm formation. Dural venous sinuses patent. Left-sided dural venous sinus system is dominant. 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 There are no findings of pathologic intracranial enhancement. The soft tissues of the neck demonstrate no acute process. Lung apices are clear. Cervical spinal alignment normal without acute or suspicious osseous abnormality. IMPRESSION: 1. No CT evidence of an acute intracranial abnormality. 2. No CTA findings of intracranial large vessel occlusion or significant stenosis. 3. No evidence of aneurysm formation. 4. Dural venous sinuses patent. 5. No pathologic intracranial enhancement. 6. Unremarkable CTA neck without stenosis or dissection. Dictated by: Dictated on workstation # [id number] Dict: 02/08/201936 Trans: 02/08/201945 [facility] [id number] Interpreted by: TAN VILLEGAS MD Electronically signed by: TAN VILLEGAS MD 02/08/201945 Departure Impression Primary Impression: Atypical migraine Additional Impressions: Expressive aphasia Right hand paresthesia Paresthesia of tongue Disposition: 01 HOME, SELF-CARE Condition: Improved Departure-Patient Inst. Decision time for Depature: 20:30 Referrals: GEGE WOODS MD (PCP/Family) Primary Care Physician Patient Instructions: Migraine Headache (DC) Add. Discharge Instructions: Your symptoms are likely due to an atypical migraine. If future symptoms are isolated to visual aura and headache, you may treat with hydration, ibuprofen, and rest. If you have any other neurologic symptoms such as numbness or weakness of the limb, loss of any portion of your vision (different from typical aura), difficulty speaking, or other focal neurologic deficits, please return to the emergency room immediately. Follow-up with your primary care provider soon as possible. All discharge instructions reviewed with patient and/or family. Voiced un derstanding. Copy Copies To 1: GEGE WOODS MD, JOSHUA T MD February 08, 2020 18:33
[2020-02-08 18:36] LABS: ALKALINE PHOSPHATASE 60 U/L (40-136); CREATININE SERUM 0.95 MG/DL (0.60-1.30); GFR ESTIMATED > 60
[2020-02-08 18:37] LABS: BUN/CREATININE RATIO 16
[2020-02-08 18:39] LABS: ALANINE AMINOTRANSFERASE 24 U/L (0-55)
[2020-02-08] MEDS ORDERED: NS 100 ML (IVPB) BAG IV ONE (19:15)
[2020-02-08] MEDS ORDERED: IOHEXOL 350 MG/ML 100 ML (OMNIPAQUE 350) VIAL IV ONE (19:15)
[2020-02-08] MEDS ORDERED: HOLD METFORMIN - RECEIVED CONTRAST 20 ML VIAL IV SCH (19:15)
[2020-02-08 19:17] LABS: BILIRUBIN,URINE NEGATIVE (NEGATIVE); CLARITY,URINE CLEAR; COLOR,URINE YELLOW; GLUCOSE, URINE (UA) NEGATIVE (NEGATIVE); KETONES,URINE NEGATIVE (NEGATIVE); LEUKOCYTE ESTERASE ,URINE TRACE (NEGATIVE); NITRITE,URINE NEGATIVE (NEGATIVE); PROTEIN,URINE NEGATIVE (NEGATIVE)
[2020-02-08 19:24] LABS: BACTERIA,URINE FEW /HPF; RBC,URINE 0-2 /HPF; SQUAMOUS EPITHELIAL CELL,UR 25-50 /HPF
--- NOTE | 2020-02-08 19:48 | Diagnostic Imaging Report ---
PROCEDURE: CT angiography of the head and CT angiography of the neck with and without contrast. TECHNIQUE: Contiguous noncontrast images were obtained from the skull base through the vertex. After intravenous contrast administration, helical CT angiography of the neck was performed. Source data was reformatted into 3D MIP projections. Delayed post contrast acquisition was also obtained. Auto Exposure Controls were utilized during the CT exam to meet ALARA standards for radiation dose reduction. INDICATION: Dull headache with resolved episode of dizziness and blurred vision. No comparison available. FINDINGS: CT of the head demonstrates no evidence of an acute intracranial abnormality. There is no evidence of intracranial hemorrhage. There is no mass effect or shift. There is no hydrocephalus. There is no abnormal extra-axial fluid collection. Bunch-white matter differentiations are maintained. Basilar cisterns patent. Posterior fossa unremarkable. Mastoid air cells appear clear. The paranasal sinuses are clear. The orbital contents are unremarkable. CTA demonstrates no significant stenosis at the origins of the great vessels arising from aortic arch. There is a common origin of the left common carotid artery and brachiocephalic. The vertebral artery origins are patent. Common carotid arteries demonstrate no significant stenosis. There is no significant stenosis at the bifurcations. Cervical ICA is unremarkable. The vertebral arteries within the neck unremarkable. There are no findings of dissection. Intracranially, there is appropriate flow within the intracranial segments of the internal carotid arteries. Carotid terminus unremarkable. There is normal flow within the M1 segment of both of the middle cerebral arteries with no occluded M2 branch. The anterior cerebral arteries are patent. Within the posterior circulation, the vertebral arteries are patent. Basilar unremarkable. Superior cerebellar and posterior cerebral arteries unremarkable. There are no findings of aneurysm formation. Dural venous sinuses patent. Left-sided dural venous sinus system is dominant. 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 There are no findings of pathologic intracranial enhancement. The soft tissues of the neck demonstrate no acute process. Lung apices are clear. Cervical spinal alignment normal without acute or suspicious osseous abnormality. IMPRESSION: 1. No CT evidence of an acute intracranial abnormality. 2. No CTA findings of intracranial large vessel occlusion or significant stenosis. 3. No evidence of aneurysm formation. 4. Dural venous sinuses patent. 5. No pathologic intracranial enhancement. 6. Unremarkable CTA neck without stenosis or dissection. Dictated by: Dictated on workstation # [id number]
[2020-02-08 20:36] VITALS: BP 125/81
== END 2020-02-08 20:40 | disposition home or self-care (01) ==
LOC: EDUNIT# 17:34 → ER 17:36
DX: G43.809 Other migraine, not intractable, without status migrainosus (principal); R47.01 Aphasia; R20.2 Paresthesia of skin
CPT/HCPCS: 36415; 70496; 70498; 80053; 81000; 83735; 84703; 85025; 93005; 93041

== ENCOUNTER → 2023-02-22 | Outpatient (CLI) | payer OTHER ==
--- NOTE | 2023-02-22 10:37 | Diagnostic Imaging Report ---
PROCEDURE: Pelvic comp/transvaginal sonogram. TECHNIQUE: Complete transabdominal and transvaginal pelvic ultrasound was performed. In addition, limited pelvic Doppler was performed. INDICATION: Malpositioned IUD. The uterus is anteverted measuring 6.7 x 3.2 x 5.5 cm. Endometrium is 3 mm in thickness. There is an IUD in the endometrial canal. IUD is slightly low in position. No myometrial mass is identified. Right ovary measures 3.0 x 1.6 x 1.5 cm and left ovary measures 3.6 x 2.7 x 3.9 cm. Left ovary does contain a 3.7 cm simple appearing cyst. There is blood flow to both ovaries. No free fluid is identified. IMPRESSION: 1. 3.7 cm left ovarian cyst. 2. The IUD is slightly low in position in the lower uterine segment. No other significant abnormality is detected. Dictated by: Dictated on workstation # [id number]
== END ==
LOC: RAD 09:02
PROVIDERS: ATTEND Obstetrics & Gynecology
DX: N83.202 Unspecified ovarian cyst, left side (principal); T83.32XA Displacement of intrauterine contraceptive device, initial encounter; Z97.5 Presence of (intrauterine) contraceptive device
CPT/HCPCS: 76830; 76856